=== PATIENT | female | born 1985 | race Caucasian/White ===

== ENCOUNTER 2017-04-14 18:46 | Emergency (ER) | payer MEDICARE, MEDICAID ==
[2017-04-14 19:33] VITALS: BP 105/66
[2017-04-14] MEDS ORDERED: Ibuprofen TAB* 600 MG PO ONE (19:35)
--- NOTE | 2017-04-14 19:35 | UC ---
Hand/Wrist HPI - HPI Summary HPI Summary: Fell backward foosh to right wrist - History Of Current Complaint Chief Complaint: UCUpperExtremity Stated Complaint: RT WRIST INJURY Time Seen by Provider: 04/14/17 19:31 Hx Obtained From: Patient Hx Last Menstrual Period: 07/22/14 ?: No Mechanism Of Injury: foosh Onset/Duration: Sudden Onset Severity Initially: Moderate Severity Currently: Moderate Character Of Pain: Aching, Throbbing Aggravating Factor(s): Movement Alleviating Factor(s): Rest, Ice Related History: Dominant Hand Right - Allergies/Home Medications Allergies/Adverse Reactions: Allergies Allergy/AdvReac Type Severity Reaction Status Date / Time No Known Allergies Allergy Verified 04/14/17 19:33 PMH/Surg Hx/FS Hx/Imm Hx Previously Healthy: Yes - Surgical History Surgical History: Yes Surgery Procedure, Year, and Place: x2. removal of cyst on R side of face. TUBAL LIGATION - Family History Known Family History: Positive: None - Social History Occupation: Employed Full-time Lives: With Family Alcohol Use: Rare Substance Use Type: None Smoking Status (MU): Former Smoker Type: Cigarettes Amount Used/How Often: 1/4 - 1/2 ppd Length of Time of Smoking/Using Tobacco: 10 yrs Have You Smoked in the Last Year: No When Did the Patient Quit Smoking/Using Tobacco: 10/01/09 - Immunization History Most Recent Influenza Vaccination: Not the Season Review of Systems Constitutional: Negative Skin: Negative Eyes: Negative ENT: Negative Respiratory: Negative Cardiovascular: Negative Gastrointestinal: Negative Genitourinary: Negative Motor: Negative Neurovascular: Negative Musculoskeletal: Arthralgia - right wrist Neurological: Negative Psychological: Negative Is Patient Immunocompromised?: No All Other Systems Reviewed And Are Negative: Yes Physical Exam Triage Information Reviewed: Yes Appearance: Well-Appearing, No Pain Distress, Well-Nourished Vital Signs Reviewed: Yes Eye Exam: Normal Eyes: Positive: Conjunctiva Clear ENT Exam: Normal ENT: Positive: Normal ENT inspection, Hearing grossly normal. Negative: Nasal congestion, Nasal drainage, Hoarse voice, Dental tenderness, Sinus tenderness Dental Exam: Other Neck exam: Normal Neck: Positive: Supple, Nontender, No Lymphadenopathy Respiratory Exam: Normal Respiratory: Positive: Chest non-tender, No respiratory distress, No accessory muscle use Cardiovascular Exam: Normal Cardiovascular: Positive: RRR, Pulses Normal, Brisk Capillary Refill Musculoskeletal Exam: Other Musculoskeletal: Positive: ROM Intact, No Edema, Strength Limited @ - right wrist Neurological Exam: Normal Neurological: Positive: Alert, Muscle Tone Normal Psychological Exam: Normal Skin Exam: Normal Diagnostics - Radiology No standard instances Xray Interpretation: No Acute Changes Radiology Interpretation Completed By: ED Physician, Radiologist Hand/Wrist Course/Dx - Course Course Of Treatment: rice, ibuprofen, splint antelmo wrap follow with orthopedic MD PRN - Differential Dx/Diagnosis Provider Diagnoses: Right wrist sprain Discharge - Discharge Plan Condition: Stable Disposition: HOME Patient Education Materials: Ibuprofen (By mouth), Wrist Sprain (ED) Forms: *Work Release Referrals: Jason Remy MD [Medical Doctor] - If Needed
--- NOTE | 2017-04-14 20:00 | RAD ---
INDICATION: RIGHT wrist pain following fall on outstretched hand. COMPARISON: None. TECHNIQUE: AP, lateral, and oblique views RIGHT wrist. REPORT: No cortical disruption or suspicious trabecular irregularity to suggest fracture. Normal articular alignment. Mild volar and dorsal soft tissue swelling. IMPRESSION: No radiographic evidence for fracture.
== END 2017-04-14 20:20 | disposition home or self-care (01) ==
LOC: UCCORT 18:46
DX: S63.501A Unspecified sprain of right wrist, initial encounter (principal); W18.30XA Fall on same level, unspecified, initial encounter; Y93.9 Activity, unspecified; Y92.9 Unspecified place or not applicable; Z87.891 Personal history of nicotine dependence
CPT/HCPCS: 99213; A9270-GY; G0463

== ENCOUNTER 2017-12-01 14:27 | Emergency (ER) | payer MEDICARE, MEDICAID ==
[2017-12-01 14:52] VITALS: BP 113/66
--- NOTE | 2017-12-01 16:18 | UC ---
Dizzy HPI HPI Summary: Woke up this morning with some dizziness. Constant. Does not resolve when at rest/still. Feels a little unstable on her feet when she stands up to walk. Symptoms have improved over the course of the day but are still present. Not worse with head movement. No nausea/vomiting. No fever or URI symptoms. No ear pain. No visual disturbances or ringing in the ears. She denies any recent trauma, head injury or unusual activity/exertion. Reports she is hydrating well throughout the day. - History Of Current Complaint Chief Complaint: UCDizziness Stated Complaint: DIZZY Time Seen by Provider: 12/01/17 15:25 Hx Obtained From: Patient Hx Last Menstrual Period: 11/02/17 tubal Onset/Duration: Sudden Onset, Lasting Hours, Still Present - BUT BETTER Timing: Constant Severity Initially: Moderate Severity Currently: Mild Pain Intensity: 0 Pain Scale Used: 0-10 Numeric Character: Head Spinning, Room Spinning, Dizzy Aggravating Factor(s): Position Change - GETTING UP AND WALKING FEELS A BIT UNSTABLE Alleviating Factor(s): Nothing Associated Signs And Symptoms: Negative: Nausea, Vomiting, Tinnitus, Chest Pain , SOB, Palpitations, Visual Changes - Allergies/Home Medications Allergies/Adverse Reactions: Allergies Allergy/AdvReac Type Severity Reaction Status Date / Time No Known Allergies Allergy Verified 12/01/17 14:49 PMH/Surg Hx/FS Hx/Imm Hx Previously Healthy: Yes - Surgical History Surgical History: Yes Surgery Procedure, Year, and Place: x2. removal of cyst on R side of face. TUBAL LIGATION - Family History Known Family History: Positive: Hypertension - Social History Alcohol Use: Rare Substance Use Type: None Smoking Status (MU): Current Some Day Smoker Type: Cigarettes Amount Used/How Often: 1/4 - 1/2 ppd Length of Time of Smoking/Using Tobacco: 10 yrs Have You Smoked in the Last Year: No When Did the Patient Quit Smoking/Using Tobacco: 10/01/09 - Immunization History Most Recent Influenza Vaccination: Not the Season Review of Systems Constitutional: Negative Respiratory: Negative Cardiovascular: Negative Gastrointestinal: Negative Neurological: Other - DIZZY All Other Systems Reviewed And Are Negative: Yes Physical Exam Triage Information Reviewed: Yes Appearance: Well-Appearing, No Pain Distress, Well-Nourished Vital Signs: Initial Vital Signs Temp 98.0 F 12/01/17 14:42 Pulse 101 12/01/17 14:42 Resp 16 12/01/17 14:42 BP 97/54 12/01/17 14:42 Pulse Ox 99 12/01/17 14:42 Vital Signs Reviewed: Yes Eyes: Positive: Conjunctiva Clear ENT: Positive: Hearing grossly normal, Pharynx normal, TMs normal, Other - FLUID BEHIND RIGHT TM. CERUMEN PARTIALLY OBSTRUCTING LEFT TM - TM VISUALIZED AFTER EAR IRRIGATION AND NORMAL Neck: Positive: Supple, Nontender, No Lymphadenopathy Respiratory Exam: Normal Cardiovascular: Positive: Tachycardia Abdomen Description: Positive: Nontender, Soft. Negative: CVA Tenderness (R), CVA Tenderness (L), Distended, Guarding Musculoskeletal: Positive: No Edema Neurological: Positive: Alert Psychological: Positive: Age Appropriate Behavior Skin: Negative: rashes Diagnostics - EKG Cardiac Rate: NL - 88BPM Ectopy: None ST Segment: Normal Re-Evaluation - Re-Evaluation First Eval Re-Evaluation Time: 17:00 - PT STATES DIZZINESS IS ALMOST COMPLETELY RESOLVED AFTER EAR IRRIGATION Change: Improved Dizzy Course/Dx - Course Course Of Treatment: ORTHOSTATIC VITAL SIGNS UNREMARKABLE. EKG UNREMARKABLE. CBC , CMP AND TSH DRAWN TODAY. PHYSICAL EXAM NORMAL EXCEPT FOR SOME FLUID BEHIND RIGHT EAR DRUM. PT SX ARE ALREADY IMPROVED SINCE THIS MORNING AND AFTER LEFT EAR IRRIGATION TODAY BY RN SX ARE ALMOST COMPLETELY RESOLVED. MECLIZINE NEEDED. STAY WELL HYDRATED AND F/U WITH PCP THIS WEEK IF NEEDED. TO ED IF SX WORSEN. - Differential Dx/Diagnosis Provider Diagnoses: DIZZINESS, NOS Discharge - Sign-Out/Discharge Documenting (check all that apply): Patient Departure All imaging exams completed and their final reports reviewed: No Studies - Discharge Plan Condition: Stable Disposition: HOME Prescriptions: Meclizine HCl [Motion Sickness Relief] 25 mg PO TID PRN #30 tablet PRN Reason: Vertigo Patient Education Materials: Vertigo (ED), Dizziness (ED) Forms: *Work Release Referrals: Jessee Courtney MD [Primary Care Provider] - 1 Week Additional Instructions: YOUR EXAM TODAY WAS NORMAL OTHER THAN SOME FLUID BEHIND YOUR EAR DRUMS. YOU MAY BE SUFFERING FROM ALLERGIES OR COULD BE IN THE EARLY STAGES OF A VIRAL ILLNESS. EKG TODAY UNREMARKABLE. LABS DRAWN INCLUDING BLOOD COUNT, METABOLIC PANEL AND THYROID TEST. FOLLOW-UP WITH YOUR PCP THIS WEEK IF YOUR SYMPTOMS ARE PERSISTENT. GO TO THE ED WITHOUT FAIL IF YOU DEVELOP WORSENING DIZZINESS, SHORTNESS OF BREATH, FEVER, CHEST PAIN, NAUSEA/VOMITING OR ANY OTHER CONCERNING SYMPTOMS. - Billing Disposition and Condition Condition: STABLE Disposition: Home
[2017-12-01 21:21] LABS: ABS Basophils 0.5 10^3/ul (0-0.2); ABS Eosinophils 0.7 10^3/ul (0-0.6); ABS Monocytes 0.6 10^3/ul (0-0.8); ABS Neutrophils 5.8 10^3/ul (1.5-7.7); ABS Nucleated RBC 0 10^3/ul; Eosinophil % 7.2 % (0-6); Hematocrit 45 % (35-47); Hemoglobin 16.5 g/dl (12.0-16.0); Mean Corpuscular HGB Conc 37 g/dl (31-36); Mean Corpuscular Hemoglobin 30 pg (27-31); Mean Corpuscular Volume 83 fL (80-97); Mean Platelet Volume 9.2 um3 (7.4-10.4); Nucleated Red Blood Cells % 0.3; Platelet Count 290 10^3/ul (150-450); Red Blood Count 5.43 10^6/ul (4.00-5.40); Red Cell Distribution Width 13 % (10.5-15); White Blood Count 9.5 10^3/ul (3.5-10.8)
[2017-12-01 21:38] LABS: EGFR Non-African American 72.1 (>60)
== END 2017-12-01 17:15 | disposition home or self-care (01) ==
LOC: UCCORT 14:27
DX: R42 Dizziness and giddiness (principal); F17.210 Nicotine dependence, cigarettes, uncomplicated
CPT/HCPCS: 36415; 80053; 84443; 85025; 93005; 99213; G0463

== ENCOUNTER 2018-01-01 12:06 | Emergency (ER) | payer MEDICARE, MEDICAID ==
[2018-01-01 12:31] VITALS: BP 105/69
--- NOTE | 2018-01-01 12:56 | UC ---
General HPI - HPI Summary HPI Summary: Patient is complaining of sore throat, runny nose cough and chest congestion for 2 days. She just notes the top of her ears are dried and sore. She has no associated fever or chills or short of breath. She has no history of asthma. - History of Current Complaint Chief Complaint: UCRespiratory Stated Complaint: RUNNY NOSE,SORE THROAT,COUGH Time Seen by Provider: 01/01/18 12:38 Hx Obtained From: Patient Hx Last Menstrual Period: 12/05/17 Onset/Duration: Gradual Onset Timing: Constant Pain Intensity: 7 Alleviating: Nothing Associated Signs & Symptoms: Positive: Cough. Negative: Fever - Allergy/Home Medications Allergies/Adverse Reactions: Allergies Allergy/AdvReac Type Severity Reaction Status Date / Time No Known Allergies Allergy Verified 01/01/18 12:24 Home Medications: Home Medications Acetaminophen [Tylenol] 650 mg PO ONCE PRN 01/01/18 [History Confirmed 01/01/18] PMH/Surg Hx/FS Hx/Imm Hx Previously Healthy: Yes - Surgical History Surgical History: Yes Surgery Procedure, Year, and Place: x2. removal of cyst on R side of face. TUBAL LIGATION - Family History Known Family History: Positive: Hypertension - Social History Occupation: Employed Full-time Lives: With Family Alcohol Use: Rare Substance Use Type: None Smoking Status (MU): Current Some Day Smoker Type: Cigarettes Amount Used/How Often: 1 pack weekly occasional use Length of Time of Smoking/Using Tobacco: 10 yrs Have You Smoked in the Last Year: No When Did the Patient Quit Smoking/Using Tobacco: 10/01/09 - Immunization History Most Recent Influenza Vaccination: Not the Season Vaccination Up to Date: Yes Review of Systems Constitutional: Negative Skin: Rash - EARS Eyes: Negative ENT: Sore Throat, Nasal Discharge Respiratory: Cough Cardiovascular: Negative Gastrointestinal: Negative Genitourinary: Negative Motor: Negative Neurovascular: Negative Musculoskeletal: Negative Neurological: Negative Psychological: Negative All Other Systems Reviewed And Are Negative: Yes Physical Exam Triage Information Reviewed: Yes Appearance: Well-Appearing Vital Signs: Initial Vital Signs Temp 98.7 F 01/01/18 12:25 Pulse 107 01/01/18 12:25 Resp 14 01/01/18 12:25 BP 105/69 01/01/18 12:25 Pulse Ox 98 01/01/18 12:25 Vital Signs Reviewed: Yes Eyes: Positive: Conjunctiva Clear ENT: Positive: Pharyngeal erythema, Nasal congestion, TMs normal Neck: Positive: Supple, Nontender, Enlarged Nodes @ - Peritonsillar Respiratory: Positive: Lungs clear, No respiratory distress, Decreased breath sounds, Other: - Spastic cough Cardiovascular: Positive: RRR, No Murmur Abdomen Description: Positive: Nontender, No Organomegaly, Soft Bowel Sounds: Positive: Present Musculoskeletal: Positive: ROM Intact Neurological: Positive: Alert Psychological: Positive: Age Appropriate Behavior Skin Exam: Normal Skin: Positive: rashes - TOPS OF EARS ARE RED, DRY, PEELING AND TENDER. NO AURICULAR ADENOPATHY., Other - NITS IN HAIR Diagnostics - Laboratory Diagnostic Studies Completed/Ordered: RAPID STREP=NEG Course/Dx - Course Course Of Treatment: PT QUESTIONED ABOUT HEAD LICE, SHE IS AWARE OF IT AND SELF TX LAST PM. WILL TX EARS WITH ANTIBIOTIC OINTMENT FOR DRYING AND PO ANTIBIOTIC. RAPID STREP=NEG - Differential Dx - Multi-Symptom Provider Diagnoses: BRONCHITIS, URI, DERMATITIS TOPS OF EARS WITH SECONDARY INFECTION, HEAD LICE Discharge - Sign-Out/Discharge Documenting (check all that apply): Patient Departure All imaging exams completed and their final reports reviewed: No Studies - Discharge Plan Condition: Stable Disposition: HOME Prescriptions: Albuterol HFA INHALER* [Ventolin HFA Inhaler*] 2 puff INH Q6H #1 mdi DOXYcycline CAP(*) [DOXYcycline 100MG CAP(*)] 100 mg PO BID 10 Days #20 cap Mupirocin 2% OINT* [Bactroban 2 % Oint*] 1 applic TOPICAL BID #1 tube Patient Education Materials: Pediculosis (ED), Cellulitis (ED), Acute Bronchitis (ED) Forms: *Work Release Referrals: DORA Irving [Medical Doctor] - 5 Days - Billing Disposition and Condition Condition: STABLE Disposition: Home - Attestation Statements Provider Attestation: I was available for consult. This patient was seen by the QUIRINO. The patient was not presented to, seen by, or examined by me. -Melia
== END 2018-01-01 14:01 | disposition home or self-care (01) ==
LOC: UCCORT 12:06
DX: J40 Bronchitis, not specified as acute or chronic (principal); J06.9 Acute upper respiratory infection, unspecified; L30.3 Infective dermatitis; B85.0 Pediculosis due to Pediculus humanus capitis; F17.210 Nicotine dependence, cigarettes, uncomplicated
CPT/HCPCS: 87651; 99212; G0463